=== PATIENT | male | born 1965 | race Caucasian/White ===

== ENCOUNTER 2021-03-29 13:57 | Inpatient (IN) | payer OTHER ==
[~2021-03-29] VITALS: Ht 177.8 cm; Wt 115.2 kg
--- NOTE | 2021-03-29 14:59 | NUR ---
EMS aware bed in ER hallway. Requested that patient be taken to the lobby and start treatment that way. Patient refused treatment wanting to leave. Patient took out own IV and walked out the ambulance bay doors. Dr. Segura was informed, but patient left prior to being evaluated.
[2021-03-29 20:11] LABS: BASOPHILS % (AUTO) 0.3 % (0-1); EOSINOPHILS % (AUTO) 0 % (0-6); HEMATOCRIT 41.6 % (42.0-52.0); HEMOGLOBIN 13.7 g/dl (14.0-17.9); LYMPHOCYTES # (AUTO) 0.8 X10'3 (1.1-4.8); LYMPHOCYTES % (AUTO) 6.9 % (21-51); MEAN CORPUSCULAR HEMOGLOBIN 26.1 PG (27.0-31.0); MEAN CORPUSCULAR HGB CONC 32.9 g/dL (33.0-36.5); MEAN CORPUSCULAR VOLUME 79.4 FL (78-98); MEAN PLATELET VOLUME 7.3 FL (7.4-10.4); MONOCYTES # (AUTO) 0.3 X10'3 (0-0.9); MONOCYTES % (AUTO) 2.3 % (2-12); NEUTROPHILS # (AUTO) 10.8 X10'3 (1.8-7.7); NEUTROPHILS % (AUTO) 90.5 % (42-75); PLATELET COUNT 274 X10'3 (140-440); RED BLOOD COUNT 5.24 X10'6 (4.70-6.10); RED CELL DISTRIBUTION WIDTH 15.3 % (11.5-14.5); WHITE BLOOD COUNT 11.9 X10'3 (4.5-11.0)
[2021-03-29 20:25] LABS: ALANINE AMINOTRANSFERASE 39 U/L (12-78); ALKALINE PHOSPHATASE 91 IU/L (46-116); ANION GAP 9 (8-16); ASPARTATE AMINO TRANSFERASE 23 U/L (10-37); BILIRUBIN,TOTAL 0.4 MG/DL (0.1-1.0); BLOOD UREA NITROGEN 17 MG/DL (7-18); BUN/CREATININE RATIO 13.5 (5.4-32.0); CALCIUM 8.9 MG/DL (8.5-10.1); CHLORIDE 104 MMOL/L (99-107); CREATININE 1.26 MG/DL (0.60-1.10); GLUCOSE 194 MG/DL (70-104); POTASSIUM 4.3 MMOL/L (3.5-5.1); SODIUM 140 MMOL/L (135-145); TOTAL CARBON DIOXIDE 27.4 MMOL/L (24-32); TOTAL PROTEIN 8.1 G/DL (6.4-8.2); eGFR 59 ML/MIN
[2021-03-29] MEDS ORDERED: normal saline 1000ML IV soln IVB ONE ×2 (20:30→21:15)
[2021-03-29 20:46] LABS: AMYLASE 725 U/L (25-115); LIPASE 3556 U/L (73-393)
[2021-03-29 20:59] LABS: ETHANOL < 0.010 GM/DL (0.0-0.010)
[2021-03-29] MEDS ORDERED: ondansetron/PF 4mg/2ml inj IV ONE (21:15)
[2021-03-29] MEDS ORDERED: meperidine/PF 50mg/ml syringe IV ONE (21:15)
[2021-03-29] MEDS ORDERED: iohexol 300mg/ml 100ml inj. ONE (21:36)
[2021-03-29 23:12] LABS: CLARITY,URINE CLEAR (Clear); COLOR,URINE YELLOW (Yellow); GLUCOSE, URINE NEGATIVE (Neg); KETONES,URINE NEGATIVE (Neg); LEUKOCYTE ESTERASE ,URINE NEGATIVE (Neg); NITRITES, URINE NEGATIVE (Neg); OCCULT BLOOD,URINE TRACE-INTACT (Neg); PROTEIN,URINE NEGATIVE (Neg); UA COLLECTION TYPE URINAL; UROBILINOGEN,URINE 0.2 E.U/dL (0.2-1.0)
[2021-03-29 23:19] LABS: URINE AMPHETAMINE SCREEN NEGATIVE (Neg); URINE BARBITUATE SCREEN NEGATIVE (Neg); URINE BENZODIAZEPINES SCREEN NEGATIVE (Neg); URINE CANNABINOID SCREEN NEGATIVE (Neg); URINE COCAINE SCREEN NEGATIVE (Neg); URINE METHADONE SCREEN NEGATIVE (Neg); URINE OPIATE SCREEN NEGATIVE (Neg); URINE PHENCYCLIDINE SCREEN NEGATIVE (Neg)
[2021-03-29 23:20] LABS: BACTERIA,URINE NONE SEEN /HPF (Neg); MUCUS STRANDS NONE SEEN /LPF (Neg); RBC,URINE 0-2 /HPF (0-2); SQUAMOUS EPITHELIAL CELL,UR FEW /LPF (FEW); WBC,URINE 0-4 /HPF (0-4)
[2021-03-29] MEDS ORDERED: morphine 2 MG/ML inj. syringe IV PRN (23:20)
[2021-03-30] MEDS: ondansetron/PF 4mg/2ml inj IV PRN ×2 (00:13→06:57)
[2021-03-30] MEDS: morphine 2 MG/ML inj. syringe IV PRN ×3 (00:14→08:41)
[2021-03-30] MEDS: normal saline 1000ml 1,000 ML IV SCH ×3 (00:14→20:27)
[2021-03-30] MEDS ORDERED: PANT40TA54 PO (00:20)
[2021-03-30] MEDS ORDERED: LISI20TA28 PO (00:21)
[2021-03-30 01:25] VITALS: BP 176/82
--- NOTE | 2021-03-30 01:25 | NUR ---
PATIENT ADMITTED TO ROOM 346A FROM ER FOR PANCREATITIS. PLACED COMFORTABLE IN BED. VITAL SIGNS TAKEN AND RECORDED.
[2021-03-30] MEDS ORDERED: pneumococcal 23-VAL P-sac vacc 25 mcg/0.5ml vial IMVAC ONE (02:55)
--- NOTE | 2021-03-30 06:30 | NUR ---
Problems reprioritized. Patient report given, questions answered & plan of care reviewed with JR GARCIA.
[2021-03-30 06:57] LABS: BASOPHILS % (AUTO) 0.1 % (0-1); EOSINOPHILS % (AUTO) 0 % (0-6); HEMATOCRIT 36.9 % (42.0-52.0); HEMOGLOBIN 12.4 g/dl (14.0-17.9); LYMPHOCYTES # (AUTO) 1.4 X10'3 (1.1-4.8); LYMPHOCYTES % (AUTO) 10.3 % (21-51); MEAN CORPUSCULAR HEMOGLOBIN 26.4 PG (27.0-31.0); MEAN CORPUSCULAR HGB CONC 33.7 g/dL (33.0-36.5); MEAN CORPUSCULAR VOLUME 78.5 FL (78-98); MEAN PLATELET VOLUME 7.6 FL (7.4-10.4); MONOCYTES # (AUTO) 0.7 X10'3 (0-0.9); MONOCYTES % (AUTO) 5.1 % (2-12); NEUTROPHILS # (AUTO) 11.6 X10'3 (1.8-7.7); NEUTROPHILS % (AUTO) 84.5 % (42-75); PLATELET COUNT 253 X10'3 (140-440); RED CELL DISTRIBUTION WIDTH 15.4 % (11.5-14.5); WHITE BLOOD COUNT 13.8 X10'3 (4.5-11.0)
--- NOTE | 2021-03-30 07:07 | NUR ---
Patient in room ANAT 346. I have received report from Judy Kim and had the opportunity to ask questions and assume patient care.
[2021-03-30 07:27] LABS: ALANINE AMINOTRANSFERASE 34 U/L (12-78); ALBUMIN 3.6 G/DL (3.4-5.0); ALKALINE PHOSPHATASE 78 IU/L (46-116); ANION GAP 9 (8-16); ASPARTATE AMINO TRANSFERASE 20 U/L (10-37); BILIRUBIN,TOTAL 0.4 MG/DL (0.1-1.0); BLOOD UREA NITROGEN 15 MG/DL (7-18); BUN/CREATININE RATIO 14.6 (5.4-32.0); CALCIUM 8.4 MG/DL (8.5-10.1); CHLORIDE 106 MMOL/L (99-107); CREATININE 1.03 MG/DL (0.60-1.10); GLUCOSE 145 MG/DL (70-104); POTASSIUM 3.8 MMOL/L (3.5-5.1); SODIUM 141 MMOL/L (135-145); TOTAL CARBON DIOXIDE 26.5 MMOL/L (24-32); TOTAL PROTEIN 7.1 G/DL (6.4-8.2); eGFR 74 ML/MIN
[2021-03-30 07:40] LABS: LIPASE 2265 U/L (73-393)
[2021-03-30 08:00] VITALS: BP 149/85
[2021-03-30] MEDS: heparin, porcine 5000 units/ml vial SQ SCH ×2 (08:30→21:05)
[2021-03-30] MEDS: pantoprazole 40MG/NS 100ML BAG 100 ML IV SCH (08:30)
--- NOTE | 2021-03-30 10:26 | NUR ---
0330 reassessment of 2mg morphine not done, medication administered on prior shift-this RN was not present at that time.
[2021-03-30 11:00] VITALS: BP 171/85
[2021-03-30] MEDS ORDERED: iohexol 300mg/ml 100ml inj. ONE (12:12)
[2021-03-30] MEDS: HYDROmorphone 1 mg/ml syringe IV PRN ×2 (13:09→20:22)
[2021-03-30 13:36] LABS: APTT 26 SECONDS (22-32)
[2021-03-30 20:00] VITALS: BP 156/85
[2021-03-30] MEDS: proCHLORperazine 10 MG/2 ml inj IV PRN (21:05)
[2021-03-31] VITALS: BP 142/71
--- NOTE | 2021-03-31 03:38 | NUR ---
Patient in room ANAT 346. I have received report from Ermelinda GARCIA and had the opportunity to ask questions and assume patient care.
[2021-03-31] MEDS: HYDROmorphone 1 mg/ml syringe IV PRN ×3 (05:02→22:38)
[2021-03-31] MEDS: normal saline 1000ml 1,000 ML IV SCH ×2 (05:02→15:20)
[2021-03-31 06:00] LABS: BASOPHILS % (AUTO) 0.3 % (0-1); EOSINOPHILS % (AUTO) 0.3 % (0-6); HEMATOCRIT 35.3 % (42.0-52.0); HEMOGLOBIN 11.6 g/dl (14.0-17.9); LYMPHOCYTES # (AUTO) 1.3 X10'3 (1.1-4.8); LYMPHOCYTES % (AUTO) 11.5 % (21-51); MEAN CORPUSCULAR HEMOGLOBIN 26.3 PG (27.0-31.0); MEAN CORPUSCULAR VOLUME 79.7 FL (78-98); MEAN PLATELET VOLUME 7.8 FL (7.4-10.4); MONOCYTES # (AUTO) 0.8 X10'3 (0-0.9); MONOCYTES % (AUTO) 6.6 % (2-12); NEUTROPHILS # (AUTO) 9.4 X10'3 (1.8-7.7); NEUTROPHILS % (AUTO) 81.3 % (42-75); PLATELET COUNT 227 X10'3 (140-440); RED BLOOD COUNT 4.43 X10'6 (4.70-6.10); RED CELL DISTRIBUTION WIDTH 15.1 % (11.5-14.5); WHITE BLOOD COUNT 11.6 X10'3 (4.5-11.0)
[2021-03-31 06:09] LABS: ALANINE AMINOTRANSFERASE 28 U/L (12-78); ALBUMIN 3.3 G/DL (3.4-5.0); ALKALINE PHOSPHATASE 73 IU/L (46-116); ANION GAP 8 (8-16); ASPARTATE AMINO TRANSFERASE 21 U/L (10-37); BILIRUBIN,TOTAL 0.7 MG/DL (0.1-1.0); BLOOD UREA NITROGEN 12 MG/DL (7-18); BUN/CREATININE RATIO 11.9 (5.4-32.0); CALCIUM 8.4 MG/DL (8.5-10.1); CHLORIDE 104 MMOL/L (99-107); CREATININE 1.01 MG/DL (0.60-1.10); GLUCOSE 127 MG/DL (70-104); LIPASE 393 U/L (73-393); POTASSIUM 3.4 MMOL/L (3.5-5.1); SODIUM 138 MMOL/L (135-145); TOTAL CARBON DIOXIDE 26.3 MMOL/L (24-32); TOTAL PROTEIN 6.6 G/DL (6.4-8.2); eGFR 76 ML/MIN
--- NOTE | 2021-03-31 06:43 | NUR ---
Problems reprioritized. Patient report given, questions answered & plan of care reviewed with Rachana GARCIA.
[2021-03-31 07:00] VITALS: BP 142/79
[2021-03-31] MEDS: lisinopril 10 MG tablet PO SCH (08:42)
[2021-03-31] MEDS: pantoprazole 40MG/NS 100ML BAG 100 ML IV SCH (08:42)
[2021-03-31] MEDS: heparin, porcine 5000 units/ml vial SQ SCH ×2 (08:43→19:06)
[2021-03-31] MEDS: potassium CL 10mEq/100ml bag 100 ML IV PRN ×4 (10:33→16:30)
[2021-03-31 11:00] VITALS: BP 142/79
[2021-03-31] MEDS: ondansetron/PF 4mg/2ml inj IV PRN (12:40)
[2021-03-31 19:00] VITALS: BP 144/72
[2021-03-31] MEDS: proCHLORperazine 10 MG/2 ml inj IV PRN (19:06)
--- NOTE | 2021-03-31 19:07 | NUR ---
Report given to Gray GARCIA, all questions answered. Patient resting comfortably in room.
[2021-04-01] VITALS: BP 141/77
[2021-04-01] MEDS: normal saline 1000ml 1,000 ML IV SCH ×2 (01:20→11:20)
[2021-04-01 06:28] LABS: BASOPHILS # (AUTO) 0.1 X10'3 (0-0.2); BASOPHILS % (AUTO) 0.7 % (0-1); EOSINOPHILS # (AUTO) 0.2 X10'3 (0-0.9); EOSINOPHILS % (AUTO) 2.3 % (0-6); HEMOGLOBIN 11.1 g/dl (14.0-17.9); LYMPHOCYTES # (AUTO) 1.2 X10'3 (1.1-4.8); LYMPHOCYTES % (AUTO) 14.5 % (21-51); MEAN CORPUSCULAR HEMOGLOBIN 26.7 PG (27.0-31.0); MEAN CORPUSCULAR HGB CONC 33.8 g/dL (33.0-36.5); MEAN CORPUSCULAR VOLUME 79.1 FL (78-98); MEAN PLATELET VOLUME 7.7 FL (7.4-10.4); MONOCYTES # (AUTO) 0.5 X10'3 (0-0.9); MONOCYTES % (AUTO) 6.5 % (2-12); NEUTROPHILS # (AUTO) 6.2 X10'3 (1.8-7.7); PLATELET COUNT 204 X10'3 (140-440); RED BLOOD COUNT 4.17 X10'6 (4.70-6.10); RED CELL DISTRIBUTION WIDTH 14.9 % (11.5-14.5); WHITE BLOOD COUNT 8.2 X10'3 (4.5-11.0)
[2021-04-01 06:36] LABS: ALANINE AMINOTRANSFERASE 29 U/L (12-78); ALBUMIN/GLOBULIN RATIO 0.8 (1.1-1.5); ALKALINE PHOSPHATASE 69 IU/L (46-116); ANION GAP 8 (8-16); ASPARTATE AMINO TRANSFERASE 22 U/L (10-37); BILIRUBIN,TOTAL 1.1 MG/DL (0.1-1.0); BLOOD UREA NITROGEN 11 MG/DL (7-18); BUN/CREATININE RATIO 10.8 (5.4-32.0); CALCIUM 8.4 MG/DL (8.5-10.1); CHLORIDE 104 MMOL/L (99-107); CREATININE 1.02 MG/DL (0.60-1.10); GLUCOSE 114 MG/DL (70-104); LIPASE 240 U/L (73-393); POTASSIUM 3.4 MMOL/L (3.5-5.1); SODIUM 138 MMOL/L (135-145); TOTAL PROTEIN 6.6 G/DL (6.4-8.2); eGFR 75 ML/MIN
--- NOTE | 2021-04-01 06:41 | NUR ---
Report giving to oncoming nurse.
[2021-04-01 07:00] VITALS: BP 155/84
[2021-04-01] MEDS: heparin, porcine 5000 units/ml vial SQ SCH (08:28)
[2021-04-01] MEDS: pantoprazole 40MG/NS 100ML BAG 100 ML IV SCH (08:29)
[2021-04-01] MEDS: lisinopril 10 MG tablet PO SCH (08:29)
[2021-04-01 11:00] VITALS: BP 152/81
[2021-04-01] MEDS ORDERED: HYDR-3965 PO (11:46)
[2021-04-01] MEDS ORDERED: ONDA-104 PO (11:51)
--- NOTE | 2021-04-01 12:27 | NUR ---
dr gross made aware of k3.4 and request for PO k replacement and 4-[address] informed rn that pt will be d/c'd. no orders obtained
== END 2021-04-01 13:00 | disposition home or self-care (01) | DRG 439 ==
LOC: ER 13:57 → ED HOLD 23:24 → SUR 3N 03-30 01:20
PROVIDERS: ADMIT Internal Medicine; ATTEND Family Medicine
PROC: BW211ZZ Computerized Tomography (CT Scan) of Abdomen and Pelvis using Low Osmolar Contrast (ICD-10-PCS; 2021-03-29)
PROC: 3E0234Z Introduction of Serum, Toxoid and Vaccine into Muscle, Percutaneous Approach (ICD-10-PCS; principal; 2021-03-30)
PROC: BW211ZZ Computerized Tomography (CT Scan) of Abdomen and Pelvis using Low Osmolar Contrast (ICD-10-PCS; 2021-03-30)
DX: K85.90 Acute pancreatitis without necrosis or infection, unspecified (principal); N17.9 Acute kidney failure, unspecified; Q45.3 Other congenital malformations of pancreas and pancreatic duct; I10 Essential (primary) hypertension; K86.1 Other chronic pancreatitis; Z87.891 Personal history of nicotine dependence; Z23 Encounter for immunization; Z79.899 Other long term (current) drug therapy
CPT/HCPCS: 36415; 74177; 80053; 80305; 80320; 81001; 82150; 83605; 83690; 84145; 85025; 85610; 85730; 87040; 87081; 90732; 96361; 96374; 96375; 99285; C9113; G0378; J0780; J1170; J1644; J2175; J2270; J2405; J3480; J7030; Q9967